=== PATIENT | female | born 1975 | race African-American/Black ===

== ENCOUNTER 2017-12-14 16:52 | Inpatient (IN) ==
[2017-12-14] MEDS ORDERED: ONDANSETRON 4 MG/2 ML VIAL IV STA (17:38)
[2017-12-14] MEDS ORDERED: ASPIRIN 325 MG TABLET PO STA (17:38)
[2017-12-14] MEDS ORDERED: ALUM/MAG/SIMETH/LIDO VISC 1:1 30 ML BOTTLE PO STA (17:38)
[2017-12-14] MEDS ORDERED: hydrALAZINE 20 MG/1 ML VIAL IV STA (17:38)
[2017-12-14] MEDS ORDERED: MORPHINE 2 MG/1 ML SYRINGE IV STA (17:38)
[2017-12-14] MEDS ORDERED: NITROGLYCERIN 2% OINT 1 INCH/GM PACK TOP STA (17:38)
[2017-12-14 17:50] LABS: Basophils % 0.7 % (0.0-0.8); Eosinophils # 0.2 10*3/uL (0.0-0.87); Eosinophils % 3.6 % (0.00-10.9); Hematocrit 34.2 VOL% (35.7-47.0); Hemoglobin 10.6 GM/DL (12.0-16.0); Immature Granulocytes % 0.3 %; Immature Granulocytes Absolute 0.02 #; Lymphocytes # 1.8 10*3/uL (1.4-4.0); Lymphocytes % 31.7 % (21.3-54.2); Mean Corpuscular Hemoglobin 23 PG (27-34); Mean Corpuscular Volume 74.2 FL (87-102); Mean Platelet Volume 10.8 FL (9.6-12.0); Monocytes # 0.6 10*3/uL (0.11-0.8); Monocytes % 10.6 % (1.7-12.7); Neutrophils # 3.1 10*3/uL (1.4-7.4); Neutrophils % 53.1 % (38.7-73.9); Platelet Count 233 T/CUMM (130-400); Red Blood Count 4.61 MC/CUMM (3.8-5.5); Red Cell Distribution Width 20.6 % (9.3-17.3); White Blood Count 5.8 T/CUMM (4-12)
[2017-12-14 17:53] LABS: Apearance,Urine Slightly Hazy (Clear); Bacteria,Urine Occasional /HPF (Few); Bilirubin,Urine Negative (Negative); Blood, Urine Large mg/dL (Negative); Glucose,Urine (UA) Negative (Negative); Ketones,Urine Negative (Negative); Mucus,Urine Occasional /LPF (Occasional); Nitrite,Urine Negative (Negative); Protein,Urine 100 MG/DL; RBC,Urine 975 /HPF (0-4); Urine Specific Gravity 1.011 (1.001-1.035); Urine Urobilinogen < 2.0 EU/DL (0.2-1.0); WBC,Urine 117 /HPF (0-6)
[2017-12-14 17:54] LABS: Urine Color Red (Yellow)
[2017-12-14 18:00] LABS: Albumin 3.8 G/DL (3.4-5.0); Bilirubin,Total 0.5 MG/DL (0.2-1.0); Magnesium 2.1 MG/DL (1.8-2.4); Osmolality,Calculated 276.4 MOS/KG (273-304); Potassium 3.6 MMOL/L (3.5-5.1); Total Protein 8.1 G/DL (6.4-8.3)
[2017-12-14 18:03] LABS: Barbiturates Screen,Urine Negative (Negative); Benzodiazepines Screen,Urine Negative (Negative); Cannabinoid Screen,Urine Negative (Negative); Opiate Screen,Urine Negative (Negative); Phencyclidine Screen,Urine Negative (Negative)
[2017-12-14] MEDS ORDERED: hydrALAZINE 20 MG/1 ML VIAL ONE (18:03)
[2017-12-14] MEDS ORDERED: ASPIRIN 325 MG TABLET ONE (18:03)
[2017-12-14] MEDS ORDERED: ONDANSETRON 4 MG/2 ML VIAL ONE (18:04)
[2017-12-14] MEDS ORDERED: NITROGLYCERIN 2% OINT 1 INCH/GM PACK TOP ONE (18:04)
[2017-12-14] MEDS ORDERED: ALUM/MAG/SIMETH/LIDO VISC 1:1 30 ML BOTTLE PO ONE (18:05)
[2017-12-14] MEDS ORDERED: MORPHINE 2 MG/1 ML SYRINGE ONE (18:05)
[2017-12-14] MEDS ORDERED: LEVOFLOXACIN INJ 750 MG in PREMIX 1 EACH IV STA (18:46)
[2017-12-14 19:08] LABS: INR 0.9; PT Patient Result 9.8 SECS
[2017-12-14] MEDS ORDERED: ENOXAPARIN 40 MG/0.4 ML SYRINGE ONE (20:09)
[2017-12-14] MEDS ORDERED: LEVOFLOXACIN INJ 150 ML IV ONE (20:09)
[2017-12-14] MEDS: SODIUM CHLORIDE 0.9% 1,000 ML IV SCH (20:14)
[2017-12-14] MEDS ORDERED: ONDANSETRON 4 MG/2 ML VIAL IV PRN (20:40)
[2017-12-14] MEDS ORDERED: ASPIRIN EC 81 MG TABLET PO PRN (20:40)
[2017-12-14] MEDS ORDERED: hydrALAZINE 20 MG/1 ML VIAL IV PRN (20:40)
[2017-12-14] MEDS ORDERED: NICOTINE 21 MG/24 HR PATCH TRANSDERM PRN (20:40)
[2017-12-14] MEDS ORDERED: MORPHINE 2 MG/1 ML SYRINGE IV PRN (20:40)
[2017-12-14] MEDS ORDERED: ENOXAPARIN 40 MG/0.4 ML SYRINGE SUBCUT SCH (21:00)
[2017-12-14 21:54] LABS: Risk Ratio 3.72; Thyroid Stimulating Hormone 1.65 uIU/ml (0.358-3.74); VLDL CHOLESTEROL 14.2 MG/DL
[2017-12-14] MEDS: NITROGLYCERIN 2% OINT 1 INCH/GM PACK TOP SCH (23:07)
[2017-12-14] MEDS: DOCUSATE SODIUM 100 MG CAPSULE PO SCH (23:07)
[2017-12-15] MEDS ORDERED: LISINOPRIL 20 MG TABLET PO SCH (09:00)
[2017-12-15] MEDS ORDERED: amLODIPine 10 MG TABLET PO SCH (09:00)
[2017-12-15] MEDS ORDERED: hydroCHLOROthiazide 25 MG TABLET PO SCH (09:00)
[2017-12-15] MEDS ORDERED: PANTOPRAZOLE 40 MG TABLET PO SCH (09:00)
[2017-12-15] MEDS: NITROGLYCERIN 2% OINT 1 INCH/GM PACK TOP SCH (09:07)
[2017-12-15] MEDS: DOCUSATE SODIUM 100 MG CAPSULE PO SCH (09:07)
[2017-12-15 12:19] LABS: Basophils % 0.4 % (0.0-0.8); Eosinophils # 0.2 10*3/uL (0.0-0.87); Eosinophils % 3.3 % (0.00-10.9); Hematocrit 31.6 VOL% (35.7-47.0); Hemoglobin 9.6 GM/DL (12.0-16.0); Immature Granulocytes Absolute 0.05 #; Lymphocytes # 1.7 10*3/uL (1.4-4.0); Lymphocytes % 32.9 % (21.3-54.2); Mean Corpuscular HGB Conc 30.4 GM/DL (32-36); Mean Corpuscular Hemoglobin 23 PG (27-34); Mean Corpuscular Volume 74.5 FL (87-102); Mean Platelet Volume 11.2 FL (9.6-12.0); Monocytes # 0.5 10*3/uL (0.11-0.8); Monocytes % 9.1 % (1.7-12.7); Neutrophils # 2.7 10*3/uL (1.4-7.4); Neutrophils % 53.3 % (38.7-73.9); Platelet Count 225 T/CUMM (130-400); Red Blood Count 4.24 MC/CUMM (3.8-5.5); Red Cell Distribution Width 20.2 % (9.3-17.3); White Blood Count 5.1 T/CUMM (4-12)
[2017-12-15 12:48] LABS: Albumin 3.5 G/DL (3.4-5.0); Bilirubin,Direct 0.24 MG/DL (0.0-0.20); Bilirubin,Indirect 0.6 MG/DL (0.0-1.0); Bilirubin,Total 0.8 MG/DL (0.2-1.0); Total Protein 7.5 G/DL (6.4-8.3)
[2017-12-15 12:50] LABS: Alanine Aminotransferase 81 U/L (13-56); Albumin 3.5 G/DL (3.4-5.0); Alkaline Phosphatase 67 U/L (45-117); Aspartate Amino Transferase 105 U/L (0-37); Blood Urea Nitrogen 5 MG/DL (7-18); Glucose 107 MG/DL (74-106); Magnesium 2.1 MG/DL (1.8-2.4); Osmolality,Calculated 271.7 MOS/KG (273-304); Potassium 3.6 MMOL/L (3.5-5.1); Sodium 138 MMOL/L (136-145); Total Protein 7.6 G/DL (6.4-8.3); Troponin I Only < 0.015 NG/ML (0.00-0.045)
[2017-12-15] MEDS: SODIUM CHLORIDE 0.9% 1,000 ML IV SCH (13:11)
[2017-12-15 13:40] LABS: Hepatitis A Ab IgM Result Negative (Negative); Hepatitis B Core IgM Quant 0.16 Index; Hepatitis B Core IgM Result Negative (Negative); Hepatitis B Surface Ag Quant < 0.10 Index; Hepatitis B Surface Ag Result Negative (Negative); Hepatitis C Virus Ab Quant 0.07 Index; Hepatitis C Virus Ab Result Negative (Negative)
[2017-12-15 15:37] VITALS: BP 136/89
[2017-12-15] MEDS ORDERED: LEVOFLOXACIN INJ 500 MG in PREMIX 1 EACH IV SCH (21:00)
== END 2017-12-15 21:05 | disposition home or self-care (01) | DRG 463 ==
LOC: N.ED 16:52 → N.EDINP 19:13 → INTOOBSV 19:13 → N.5E 19:44
PROVIDERS: ADMIT Internal Medicine; ATTEND Internal Medicine

== ENCOUNTER 2020-08-29 07:11 | Observation (INO) ==
[2020-08-29 08:23] LABS: Basophils # 0.1 10*3/uL (0.0-0.2); Basophils % 0.9 % (0.0-0.8); Eosinophils # 0.4 10*3/uL (0.0-0.87); Eosinophils % 6.3 % (0.00-10.9); Hematocrit 35.3 VOL% (35.7-47.0); Hemoglobin 11.1 GM/DL (12.0-16.0); Immature Granulocytes % 0.4 %; Immature Granulocytes Absolute 0.02 #; Lymphocytes # 2.1 10*3/uL (1.4-4.0); Mean Corpuscular HGB Conc 31.4 GM/DL (32-36); Mean Corpuscular Volume 72.2 FL (87-102); Mean Platelet Volume 9.6 FL (9.6-12.0); Monocytes % 8.2 % (1.7-12.7); Neutrophils % 47.2 % (38.7-73.9); Platelet Count 324 T/CUMM (130-400); Red Blood Count 4.89 MC/CUMM (3.8-5.5); Red Cell Distribution Width 20.8 % (9.3-17.3); White Blood Count 5.7 T/CUMM (4-12)
[2020-08-29 08:32] LABS: Bacteria,Urine Occasional /HPF (Few); Bilirubin,Urine Negative (Negative); Blood, Urine Negative (Negative); Glucose,Urine (UA) Negative (Negative); Ketones,Urine Negative (Negative); Nitrite,Urine Negative (Negative); Protein,Urine Negative; RBC,Urine 1 /HPF (0-4); Squamous Epithelial Cell,Urine Occasional /HPF (0-10); Urine Appearance CLEAR (Clear); Urine Color Straw (Yellow); Urine Specific Gravity 1.003 (1.001-1.035); Urine Urobilinogen < 2.0 EU/DL (0.2-1.0)
[2020-08-29 08:37] LABS: PT Patient Result 10.8 SECS (9.8-11.9); Partial Thromboplastin Time 25.2 SECS (23.9-33.8)
[2020-08-29 08:46] LABS: Barbiturates Screen,Urine Negative (Negative); Benzodiazepines Screen,Urine Negative (Negative); Cannabinoid Screen,Urine Negative (Negative); Opiate Screen,Urine Negative (Negative); Phencyclidine Screen,Urine Negative (Negative)
[2020-08-29 08:53] LABS: Alanine Aminotransferase 33 U/L (13-56); Albumin 3.6 G/DL (3.4-5.0); Alkaline Phosphatase 70 U/L (45-117); Aspartate Amino Transferase 40 U/L (0-37); Bilirubin,Total < 0.39 MG/DL (0.2-1.0); Blood Urea Nitrogen 8 MG/DL (7-18); Calcium 9.4 MG/DL (8.5-10.1); Estimated Glom Filtration Rate 151 ML/MIN; Glucose 109 MG/DL (74-106); Osmolality,Calculated 273.7 MOS/KG (273-304); Total Protein 8.6 G/DL (6.4-8.3)
[2020-08-29] MEDS ORDERED: ONDANSETRON 4 MG/2 ML VIAL IV PRN (09:57)
[2020-08-29] MEDS ORDERED: ACETAMINOPHEN 325 MG TABLET PO PRN (09:57)
[2020-08-29] MEDS ORDERED: DEXTROSE 50% 25 GM/50 ML VIAL IV PRN (09:57)
[2020-08-29] MEDS ORDERED: GLUCAGON 1 MG VIAL IM PRN (09:57)
[2020-08-29] MEDS ORDERED: NICOTINE 21 MG/24 HR PATCH TRANSDERM PRN (09:57)
[2020-08-29] MEDS ORDERED: METHOCARBAMOL 500 MG TABLET PO PRN (10:13)
[2020-08-29] MEDS: ENOXAPARIN 40 MG/0.4 ML SYRINGE SUBCUT SCH (15:55)
[2020-08-29] MEDS: SODIUM CHLORIDE 0.9% 1,000 ML IV SCH (15:55)
[2020-08-29] MEDS: ASPIRIN 325 MG TABLET PO SCH (15:55)
[2020-08-29] MEDS: POTASSIUM CHLORIDE 20 MEQ TABLET PO PRN ×2 (16:12→19:32)
[2020-08-29] MEDS ORDERED: ATORVASTATIN 40 MG TABLET PO SCH (21:00)
[2020-08-30 04:57] LABS: Basophils % 0.6 % (0.0-0.8); Eosinophils # 0.2 10*3/uL (0.0-0.87); Eosinophils % 4.5 % (0.00-10.9); Hematocrit 33.9 VOL% (35.7-47.0); Hemoglobin 10.5 GM/DL (12.0-16.0); Immature Granulocytes % 0.2 %; Immature Granulocytes Absolute 0.01 #; Lymphocytes # 1.7 10*3/uL (1.4-4.0); Lymphocytes % 33.7 % (21.3-54.2); Mean Corpuscular Volume 73.1 FL (87-102); Mean Platelet Volume 10.3 FL (9.6-12.0); Monocytes % 10.1 % (1.7-12.7); Neutrophils % 50.9 % (38.7-73.9); Platelet Count 308 T/CUMM (130-400); Red Blood Count 4.64 MC/CUMM (3.8-5.5); Red Cell Distribution Width 20.7 % (9.3-17.3); White Blood Count 5.2 T/CUMM (4-12)
[2020-08-30 05:11] LABS: Albumin 3.2 G/DL (3.4-5.0); Bilirubin,Total 0.5 MG/DL (0.2-1.0); Calcium 9.1 MG/DL (8.5-10.1); Osmolality,Calculated 273.7 MOS/KG (273-304); Risk Ratio 3.38; Total Protein 7.8 G/DL (6.4-8.3); VLDL CHOLESTEROL 27.6 MG/DL
[2020-08-30 05:12] LABS: % Iron Saturation 11.5 % (18-50); Ferritin 13.2 ng/ml (8-252)
[2020-08-30] MEDS: SODIUM CHLORIDE 0.9% 1,000 ML IV SCH (05:13)
[2020-08-30] MEDS ORDERED: POTASSIUM CHLORIDE 20 MEQ/15 ML UDCUP PO ONE (07:09)
[2020-08-30 07:32] VITALS: BP 114/78
[2020-08-30] MEDS: ASPIRIN 325 MG TABLET PO SCH (08:05)
[2020-08-30] MEDS ORDERED: PRAVASTATIN 40 MG TABLET PO SCH (09:00)
[2020-08-30] MEDS ORDERED: ASPIRIN EC 81 MG TABLET PO SCH (09:00)
[2020-08-30] MEDS ORDERED: amLODIPine 10 MG TABLET PO SCH (09:00)
[2020-08-30] MEDS: ENOXAPARIN 40 MG/0.4 ML SYRINGE SUBCUT SCH (09:44)
== END 2020-08-30 13:20 | disposition home or self-care (01) ==
LOC: N.ED 07:11 → N.EDINP 07:11 → N.TELES 15:20
PROVIDERS: ADMIT Family Medicine; ATTEND Family Medicine